=== PATIENT | female | born 1955 | race Caucasian/White ===

== ENCOUNTER 2017-02-28 17:17 | Emergency (ER) | payer SELFPAY ==
--- NOTE | 2017-02-28 17:39 | RADIOLOGY REPORT (SQ) ---
EXAM DESCRIPTION: CT HEAD WITHOUT COMPLETED DATE/TIME: 02/28/2017 5:29 pm REASON FOR STUDY: bed 10 stroke alert COMPARISON: None. TECHNIQUE: Axial images acquired through the brain without intravenous contrast. Images reviewed wi th bone, brain and subdural windows. Images stored on PACS. All CT scanners at this facility use dose modulation, iterative reconstruction, and/or weight based d osing when appropriate to reduce radiation dose to as low as reasonably achievable (ALARA). [facility]: Dose Right [facility]: CareDose [facility]: Dose Right [facility]: Teradose 4D [facility]: [employer] RADIATION DOSE: mGy. LIMITATIONS: None. FINDINGS: VENTRICLES: Prominent. CEREBRUM: There old infarcts in the right posterior frontal lobe an anterior parietal region. There is an acute left hemorrhagic infarct in the left basal ganglia extending superiorly. The hemorrhage measures 1.2 cm in diameter. There is surrounding vasogenic edema. No midline shift. There is vickey le mass effect due to the generalized atrophy. There is decreased attenuation throughout the periven tricular white matter consistent with small vessel disease. CEREBELLUM: No masses. No hemorrhage. No alteration of density. No evidence for acute infarction. EXTRAAXIAL SPACES: Age-related involutional change. No fluid collections. No masses. ORBITS AND GLOBE: No intra- or extraconal masses. Normal contour of globe without masses. CALVARIUM: No fracture. PARANASAL SINUSES: No fluid or mucosal thickening. SOFT TISSUES: No mass or hematoma. OTHER: No other significant finding. IMPRESSION: 1. Acute hemorrhagic infarct in the left basal ganglia. 2. Old right MCA infarct. Generalize atrophy and small-vessel ischemic changes. COMMENT: Pertinent findings on the imaging study reported as a CRITICAL RESULT to Dr. Lucero at17: 30 on 02/28/2017. Category of Critical Result: Acute hemorrhagic infarct. TECHNICAL DOCUMENTATION: JOB ID: [id number] Quality ID # [id number]: Final reports with documentation of one or more dose reduction techniques (e.g., Au tomated exposure control, adjustment of the mA and/or kV according to patient size, use of iterative reconstruction technique) 2010 [email or web address]- All Rights Reserved
[2017-02-28] MEDS ORDERED: NICARDIPINE HCL RTU, ISO-OS 20 MG/200 ML RTUINJ IV PRN (17:44)
[2017-02-28 17:45] LABS: ABSOLUTE BASOPHILS # (AUTO) 0.1 10^3/uL (0.0-0.2); ABSOLUTE EOSINOPHILS # (AUTO) 0.2 10^3/uL (0.0-0.6); ABSOLUTE LYMPHOCYTES (AUTO) 2.7 10^3/uL (0.5-4.7); ABSOLUTE MONOCYTES (AUTO) 0.6 10^3/uL (0.1-1.4); ABSOLUTE NEUT (AUTO) 3.3 10^3/uL (1.7-8.2); BASOPHILS % (AUTO) 0.8 % (0-2); EOSINOPHILS % (AUTO) 2.6 % (0-6); HEMATOCRIT 39.2 % (36.0-47.0); HEMOGLOBIN 14.3 g/dL (12.0-15.5); HGB HCT DIFFERENCE 3.7; LYMPHOCYTES % (AUTO) 40.2 % (13-45); MEAN CORPUSCULAR HEMOGLOBIN 33.2 pg (27.0-33.4); MEAN CORPUSCULAR HGB CONC 36.5 g/dL (32.0-36.0); MEAN CORPUSCULAR VOLUME 91 fl (80-97); MONOCYTES % (AUTO) 8.5 % (3-13); RED BLOOD COUNT 4.31 10^6/uL (3.72-5.28); RED CELL DISTRIBUTION WIDTH 14.2 % (11.5-14.0); SEGMENTED NEUTROPHILS % (AUTO) 47.9 % (42-78); WHITE BLOOD COUNT 6.8 10^3/uL (4.0-10.5)
[2017-02-28 17:49] LABS: PARTIAL THROMBOPLASTIN TIME 28.6 SEC (23.5-35.8); PROTHROMBIN TIME 12.2 SEC (11.4-15.4)
--- NOTE | 2017-02-28 17:52 | RADIOLOGY REPORT (SQ) ---
EXAM DESCRIPTION: CHEST SINGLE VIEW COMPLETED DATE/TIME: 02/28/2017 5:40 pm REASON FOR STUDY: bed 10 stroke alert COMPARISON: None. EXAM PARAMETERS: NUMBER OF VIEWS: One view. TECHNIQUE: Single frontal radiographic view of the chest acquired. RADIATION DOSE: NA LIMITATIONS: None. FINDINGS: LUNGS AND PLEURA: No opacities, masses or pneumothorax. No pleural effusion. MEDIASTINUM AND HILAR STRUCTURES: No masses. Contour normal. HEART AND VASCULAR STRUCTURES: Heart normal in size. Normal vasculature. BONES: No acute findings. HARDWARE: None in the chest. OTHER: No other significant finding. IMPRESSION: NO ACUTE RADIOGRAPHIC FINDING IN THE CHEST. TECHNICAL DOCUMENTATION: JOB ID: [id number]
--- NOTE | 2017-02-28 17:53 | ER Document Report ---
ED Neuro Symptoms/Deficit - General Chief Complaint: S/S of Possible Stroke Stated Complaint: RIGHT ARM NUMBNESS Time Seen by Provider: 02/28/17 17:36 Notes: 61-year-old female with history of seizures and prior CVA last being in December treated at [facility] presents with new onset speech abnormality and right- sided weakness/numbness of about 1 hour duration prior to arrival. She denies any swallowing or breathing difficulty. She is supposed to be on aspirin but not taking any anticoagulants. As well she is off all of her medications including her lisinopril and Keppra. There has been no seizure associated with this. Denies visual change. No prior intracranial hemorrhage. TRAVEL OUTSIDE OF THE [place] IN LAST 30 DAYS: No - Related Data Allergies/Adverse Reactions: codeine Allergy (Verified 02/28/17 17:25) Past Medical History - Social History Smoking Status: Current Every Day Smoker Family History: Reviewed & Not Pertinent - Past Medical History Cardiac Medical History: Reports: Hx Hypertension Neurological Medical History: Reports: Hx Cerebrovascular Accident, Hx Seizures Renal/ Medical History: Denies: Hx Peritoneal Dialysis Review of Systems - Review of Systems -: Yes All other systems reviewed and negative Physical Exam - Vital signs Vitals: Temp Pulse Resp BP Pulse Ox 98.6 F 69 14 198/115 H 95 02/28/17 17:23 02/28/17 17:23 02/28/17 17:23 02/28/17 17:23 02/28/17 17:23 Interpretation: Hypertensive Notes: Blood pressure 208/119 - Notes Notes: GENERAL: VS as per nursing doc. Well-appearing, well-nourished and in no acute distress. HEAD: Atraumatic, normocephalic. EYES: Pupils equal round and reactive to light, extraocular movements intact, sclera anicteric, no conjunctival injection or discharge. ENT: Nares patent, oropharynx clear without exudates. Moist mucous membranes. Patent airway NECK: Normal range of motion, supple, no carotid bruits. LUNGS: Breath sounds clear to auscultation bilaterally and equal but very coarse. No wheezes rales or rhonchi. HEART: Normal S1S2. Regular rate and rhythm without murmurs. Equal peripheral pulses. ABDOMEN: Soft, non-tender. EXTREMITIES: Normal range of motion. No calf tenderness. Negative Homans. No edema. NEUROLOGICAL: GCS 15, Cranial nerves II-XII intact except for some mild right facial droop. Normal visual toro. Normal speech without aphasia. No pronator drift. 3/5 RUE strength, 4/5 RLE strength, 5/5 LUE strength, 5/5 LLE strength. No cerebellar abnormalities including normal finger-nose testing. Negative Babinski, right pronator drift noted. Mild dysarthria noted. No clear aphasia otherwise. PSYCH: Normal mood, normal affect. SKIN: Warm, Dry, no cyanosis, Cap refill < 2 sec. Course - Re-evaluation Re-evalutation: 02/28/17 17:47 Spoke with [facility] and they will contact us back. This was patient's first choice and she was there with a CVA in December. 02/28/17 18:[address] Sales who recommended patient transfer as we have no neurologist or neurosurgeon infection control nurse. Discussed with Dr. Conley at [facility] who accepts the patient to [facility] for further evaluation and treatment. Patient's blood pressure has improved. It has decreased to a systolic of 160. We will continue to titrate the Cardene to get the systolic less than 140. 02/28/17 19:55 Blood pressure remaining stable currently 123/58. No worsening of symptoms, actually overall thinks that her arm is slightly stronger. - Vital Signs Vital signs: Temp Pulse Resp BP Pulse Ox 98.6 F 69 14 198/115 H 95 02/28/17 17:23 02/28/17 17:23 02/28/17 17:23 02/28/17 17:23 02/28/17 17:23 - Laboratory Result Diagrams: 02/28/17 17:35 02/28/17 17:35 - Diagnostic Test Radiology reviewed: Image reviewed, Reports reviewed - Left basal ganglia hemorrhage. Some vasogenic edema. - EKG Interpretation by Ok Rate: Normal - Normal sinus rhythm, rate 63 with left axis deviation and left ventricular hypertrophy. Nonspecific T-wave abnormalities are noted more in the inferior and somewhat anteriorly Critical Care Note - Critical Care Note Total time excluding time spent on procedures (mins): 35 Discharge - Discharge Clinical Impression: Hemorrhagic cerebrovascular accident (CVA) Condition: Good Disposition: [facility]
--- NOTE | 2017-02-28 17:58 | ER Document Report ---
ED NIH Stroke Scale - NIH Stroke Scale *: 1. NIH scale should be completed with appropriate accompanying assessment tools. *: 2. The NIH should reflect what the patient is capable of doing and should not be coached by the clinician. 1a. Level of Consciousness: 0=Alert;keenly responsive -: 1=Drowsy -: 2=Obtunded -: 3=Coma/unresponsive or reflex to noxious stimuli. 1a. Responses: 0 1b. Orientation Questions: a. What month is it? -: b. How old are you? -: 0=Answers both questions correctly. -: 1=Answers one question correctly or patient is intubated or has orotracheal trauma. -: 2=Answers neither question correctly. 1b. Responses: 0 1c. Response to commands: a. Open and close eyes? -: b. Credit Verifier and release hand? -: Credit is given despite weakness. Demonstration of task is permitted. Substitute command if hands cannot be used. -: 0=Performs both tasks correctly -: 1=Performs one task correctly -: 2=Performs neither task correctly 1c. Responses: 0 2. Gaze: Establish eye contact and instruct patient to "Follow my finger" -: 0=Normal -: 1=Partial gaze palsy. Gaze is abnormal in one or both eyes, but where forced deviation or total gaze paresis is not present. -: 2=Forced deviation or total gaze paresis. 2. Responses: 0 3. Visual Wilson: Sees fingers in all four quadrants. -: 0=No visual loss. -: 1=Partial hemianopsia. -: 2=Complete hemianopsia. -: 3=Bilateral hemianopsia (including Cortical blindness) 3. Responses: 0 4. Facial Movement: Instruct patient to: -: a. Show me your teeth -: b. Raise your eyebrows -: c. Close your eyes -: d. Smile -: 0=Normal symmetrical movement -: 1=Minor paralysis (flattened nasolabial fold, asymmetry on smiling). -: 2=Partial paralysis (total or near total paralysis of lower face). -: 3=Complete paralysis of upper and lower face 4. Responses: 1 5. Motor functions (left arm): Alternate sides and extend each arm with palms down (90 degrees if sitting or 45 degrees for supine). -: 0=No drift;limb holds for full 10 seconds. -: 1=Drift; limb holds but drifts down before full 10 seconds, but does not hit bed. -: 2=Some effort against gravity; limb cannot get to or maintain position. -: 3=No effort against gravity; limb falls. -: 4=No movement. -: UN=Amputation, joint fusion, explain in comments. 5. Responses (left arm): 0 5. Motor Functions (right arm): Alternate sides and extend each arm with palms down (90 degrees if sitting or 45 degrees for supine). -: 0=No drift;limb holds for full 10 seconds. -: 1=Drift; limb holds but drifts down before full 10 seconds, but does not hit bed. -: 2=Some effort against gravity; limb cannot get to or maintain position. -: 3=No effort against gravity; limb falls. -: 4=No movement. -: UN=Amputation, joint fusion, explain in comments. 5. Responses (right arm): 1 6. Motor Functions (left leg): With patient lying supine, alternate sides and extend each leg (30 degrees always while supine). -: 0=No drift, leg holds position for full 5 seconds -: 1=Drift; leg falls before full 5 seconds but does not hit bed. -: 2=Some effort against gravity, leg falls to bed but some effort against gravity. -: 3=No effort against gravity, leg falls to bed immediately. -: 4=No movement. -: UN=Amputation, joint fusion; explain in comments. 6. Responses (left leg): 0 6. Motor Functions (right leg): With patient lying supine, alternate sides and extend each leg (30 degrees always while supine). -: 0=No drift, leg holds position for full 5 seconds -: 1=Drift; leg falls before full 5 seconds but does not hit bed. -: 2=Some effort against gravity, leg falls to bed but some effort against gravity. -: 3=No effort against gravity, leg falls to bed immediately. -: 4=No movement. -: UN=Amputation, joint fusion; explain in comments. 6. Responses (right leg): 1 7. Limb Ataxia: With eyes open instruct patient to: -: a. "Touch your finger to your nose". -: b. "Touch your heel to your duff" -: 0=Absent -: 1=Present in one limb. -: 2=Present in two limbs. -: UN=Amputation or joint fusion; explain in comments. 7. Responses: 0 8. Sensory: Test sensation using pinprick or noxious stimuli. Test as many body parts as possible. -: 0=Normal;no sensory loss -: 1=Mile to moderate sensory loss (patient feels pin prick but is less sharp on affected side). -: 2=Severe or total sensory loss. 8. Responses: 0 9. Best Language: Instruct patient to: -: a. "Describe what you see in this picture." -: b. "Name the items in this picture." -: c. "Read these sentences." -: 0=No aphasia, normal -: 1=Mild to moderate aphasia. -: 2=Severe aphasia -: 3=Mute, global aphasia, no usable speech or auditory comprehension. 9. Responses: 0 10. Articulation, Dysarthia: Instruct patient to: -: "Read these words" or "Repeat these words" -: 0=Normal -: 1=Mild to moderate; patient may slur some words but can be understood without difficulty. -: 2=Severe; patients speech so slurred as to be unintelligible in the absence of dysphasia. -: UN=Intubated or other physical barrier, explain in comments. 10. Responses: 1 11. Extinction or inattention: 0=No abnormality -: 1= Visual, tactile, auditory, spatial, or personal inattention or extinction to bilateral simulation in one or the sensory modalities. -: 2=Profound eli-inattention or eli-inattention to more than one modality; does not recognize own hand. 11. Responses: 0 Total Score: 4
[2017-02-28 18:03] LABS: ALANINE AMINOTRANSFERASE 32 U/L (9-52); ALBUMIN 4.4 g/dL (3.5-5.0); ALKALINE PHOSPHATASE 103 U/L (38-126); ANION GAP 12 (5-19); ASPARTATE AMINO TRANSFERASE 29 U/L (14-36); BILIRUBIN,DIRECT 0.4 mg/dL (0.0-0.4); BILIRUBIN,TOTAL 1.1 mg/dL (0.2-1.3); BLOOD UREA NITROGEN 16 mg/dL (7-20); CALCIUM 9.6 mg/dL (8.4-10.2); CARBON DIOXIDE 33 mmol/L (22-30); CHLORIDE 99 mmol/L (98-107); CREATINE KINASE 167 U/L (30-135); CREATININE RESULT 1.06 mg/dL (0.52-1.25); GLUCOSE 102 mg/dL (75-110); SODIUM 144.2 mmol/L (137-145); TOTAL PROTEIN 7.8 g/dL (6.3-8.2)
[2017-02-28 18:05] LABS: POTASSIUM 2.8 mmol/L (3.6-5.0)
[2017-02-28] MEDS ORDERED: POTASSIUM CHLORIDE 10 MEQ TABLET.SA PO ONE (18:06)
[2017-02-28 18:16] LABS: CREATINE KINASE MB 0.66 ng/mL (<4.55)
[2017-02-28 18:17] LABS: TROPONIN I < 0.012 ng/mL
[2017-02-28 20:56] VITALS: BP 134/92
--- NOTE | 2017-02-28 22:48 | EKG REPORT ---
SEVERITY:- ABNORMAL ECG - SINUS RHYTHM LEFT AXIS DEVIATION LEFT VENTRICULAR HYPERTROPHY BORDERLINE T ABNORMALITIES, INFERIOR LEADS BORDERLINE PROLONGED QT INTERVAL : Confirmed by: Benny White 28-Feb-2017 22:47:41
== END 2017-02-28 21:05 | disposition short-term general hospital (02) ==
LOC: ER 17:17
DX: I62.9 Nontraumatic intracranial hemorrhage, unspecified (principal); R20.0 Anesthesia of skin; R53.1 Weakness; I10 Essential (primary) hypertension; F17.200 Nicotine dependence, unspecified, uncomplicated
CPT/HCPCS: 93005; 99291; 96365; 96366; 36415; 82553; 82962; 82550; 83735; 85025; 85610; 85730; 80053; 84484; 71010; 70450; 93010; J3490

== ENCOUNTER 2018-06-08 11:31 | Emergency (ER) | payer SELFPAY ==
[2018-06-08] MEDS ORDERED: CLONIDINE HCL 0.2 MG TABLET PO ONE (11:40)
--- NOTE | 2018-06-08 11:41 | ER Document Report ---
ED Medical Screen (RME) - General Chief Complaint: High Blood Pressure Stated Complaint: BLOOD PRESSURE ISSUES Time Seen by Provider: 06/08/18 11:39 Mode of Arrival: Ambulatory Information source: Patient TRAVEL OUTSIDE OF THE [place] IN LAST 30 DAYS: No - HPI Patient complains to provider of: elevated BP Onset: Other - pt. states she has been out of her BP meds for the past several weeks. BP has been running high - Related Data Allergies/Adverse Reactions: codeine Allergy (Verified 06/08/18 11:32) Past Medical History - Past Medical History Cardiac Medical History: Reports: Hx Hypertension Neurological Medical History: Reports: Hx Cerebrovascular Accident, Hx Seizures Renal/ Medical History: Denies: Hx Peritoneal Dialysis Physical Exam - Vital signs Vitals: Temp Pulse Resp BP Pulse Ox 97.7 F 74 18 174/106 H 96 06/08/18 11:33 06/08/18 11:33 06/08/18 11:33 06/08/18 11:33 06/08/18 11:33 Course - Vital Signs Vital signs: Temp Pulse Resp BP Pulse Ox 97.7 F 74 18 174/106 H 96 06/08/18 11:33 06/08/18 11:33 06/08/18 11:33 06/08/18 11:33 06/08/18 11:33 Doctor's Discharge - Discharge Referrals: EMILIA LAWS MD [Primary Care Provider] - Follow up as needed
[2018-06-08 12:08] LABS: ABSOLUTE LYMPHOCYTES (AUTO) 0.8 10^3/uL (0.5-4.7); ABSOLUTE MONOCYTES (AUTO) 0.3 10^3/uL (0.1-1.4); ABSOLUTE NEUT (AUTO) 4.9 10^3/uL (1.7-8.2); BASOPHILS % (AUTO) 0.4 % (0-2); HEMATOCRIT 45.3 % (36.0-47.0); HEMOGLOBIN 15.7 g/dL (12.0-15.5); LYMPHOCYTES % (AUTO) 13.8 % (13-45); MEAN CORPUSCULAR HGB CONC 34.7 g/dL (32.0-36.0); MEAN CORPUSCULAR VOLUME 92 fl (80-97); PLATELET COUNT 314 10^3/uL (150-450); RED BLOOD COUNT 4.91 10^6/uL (3.72-5.28); RED CELL DISTRIBUTION WIDTH 12.9 % (11.5-14.0); SEGMENTED NEUTROPHILS % (AUTO) 80.8 % (42-78); TOTAL CELLS COUNTED % (AUTO) 100 %; WHITE BLOOD COUNT 6.1 10^3/uL (4.0-10.5)
[2018-06-08 12:16] LABS: ALANINE AMINOTRANSFERASE 21 U/L (9-52); ALBUMIN 4.7 g/dL (3.5-5.0); ALKALINE PHOSPHATASE 81 U/L (38-126); ANION GAP 11 (5-19); ASPARTATE AMINO TRANSFERASE 31 U/L (14-36); BILIRUBIN,DIRECT 0.2 mg/dL (0.0-0.4); BILIRUBIN,TOTAL 1.4 mg/dL (0.2-1.3); BLOOD UREA NITROGEN 11 mg/dL (7-20); CARBON DIOXIDE 29 mmol/L (22-30); CHLORIDE 101 mmol/L (98-107); GLUCOSE 154 mg/dL (75-110); POTASSIUM 3.1 mmol/L (3.6-5.0); SODIUM 140.9 mmol/L (137-145); TOTAL PROTEIN 8.2 g/dL (6.3-8.2)
--- NOTE | 2018-06-08 13:11 | ER Document Report ---
ED Blood Pressure Problem - General Chief Complaint: High Blood Pressure Stated Complaint: BLOOD PRESSURE ISSUES Time Seen by Provider: 06/08/18 11:39 Mode of Arrival: Ambulatory Notes: Patient is a 62-year-old female with past medical history of hypertension who presents with chief complaint of elevated blood pressure. Patient states that she was at a physical exam for her disability claim when they found her blood pressure to be 170/100. Patient reports that she has not taken her blood pressure medications in 2 months. She is also supposed be taking Keppra for seizure disorder and she has also not had that in 2 months. Patient reports she has no primary care provider and no insurance and that is why she has not gotten refills on her medications. Patient has no acute complaints today, denies any headache, dizziness or any other symptom. TRAVEL OUTSIDE OF THE [place] IN LAST 30 DAYS: No - Related Data Allergies/Adverse Reactions: codeine Allergy (Verified 06/08/18 11:32) Past Medical History - General Information source: Patient - Social History Smoking Status: Never Smoker Chew tobacco use (# tins/day): No Drug Abuse: None Family History: Reviewed & Not Pertinent Patient has suicidal ideation: No Patient has homicidal ideation: No - Past Medical History Cardiac Medical History: Reports: Hx Hypertension Neurological Medical History: Reports: Hx Cerebrovascular Accident, Hx Seizures Renal/ Medical History: Denies: Hx Peritoneal Dialysis Review of Systems - Review of Systems Constitutional: No symptoms reported EENT: No symptoms reported Cardiovascular: No symptoms reported Respiratory: No symptoms reported Gastrointestinal: No symptoms reported Genitourinary: No symptoms reported Female Genitourinary: No symptoms reported Musculoskeletal: No symptoms reported Skin: No symptoms reported Hematologic/Lymphatic: No symptoms reported Neurological/Psychological: No symptoms reported Physical Exam - Vital signs Vitals: Temp Pulse Resp BP Pulse Ox 97.7 F 74 18 174/106 H 96 06/08/18 11:33 06/08/18 11:33 06/08/18 11:33 06/08/18 11:33 06/08/18 11:33 - Notes Notes: PHYSICAL EXAMINATION: GENERAL: Well-appearing, well-nourished and in no acute distress. HEAD: Atraumatic, normocephalic. EYES: Pupils equal round and reactive to light, extraocular movements intact, conjunctiva are normal. ENT: Nares patent, oropharynx clear without exudates. Moist mucous membranes. NECK: Normal range of motion, supple without lymphadenopathy LUNGS: Breath sounds clear to auscultation bilaterally and equal. No wheezes rales or rhonchi. HEART: Regular rate and rhythm without murmurs ABDOMEN: Soft, nontender, nondistended abdomen. No guarding, no rebound. No masses appreciated. Female : No CVA tenderness. Musculoskeletal: Normal range of motion, no pitting or edema. No cyanosis. NEUROLOGICAL: Cranial nerves grossly intact. Normal speech, normal gait. Normal sensory, motor exams PSYCH: Normal mood, normal affect. SKIN: Warm, Dry, normal turgor, no rashes or lesions noted. Course - Re-evaluation Re-evalutation: Patient was initially seen by provider in triage who ordered Catapres 0.2 mg. Patient's blood pressure has improved to 150 systolic. Patient continues to be asymptomatic and without any acute complaints. CBC is unremarkable. CMP with mild hypokalemia. Will order p.o. potassium replacement. Patient reports she has a history of hypokalemia and takes supplements at home. I will refill her blood pressure medications as well as her Keppra. Discussed discussed the importance of adherence to her medication regimen. Patient and family member at bedside verbalized understanding of same. - Vital Signs Vital signs: Temp Pulse Resp BP Pulse Ox 97.8 F 62 18 154/95 H 96 06/08/18 13:20 06/08/18 13:20 06/08/18 11:33 06/08/18 13:20 06/08/18 13:20 - Laboratory Result Diagrams: 06/08/18 11:48 06/08/18 11:48 Laboratory results interpreted by me: 06/08/18 06/08/18 11:48 11:48 Hgb 15.7 H Seg Neutrophils % 80.8 H Potassium 3.1 L Glucose 154 H Total Bilirubin 1.4 H Discharge - Discharge Clinical Impression: Medication refill, Hypokalemia Hypertension Qualifiers: Hypertension type: unspecified Qualified Code(s): I10 - Essential (primary) h ypertension Condition: Stable Disposition: HOME, SELF-CARE Additional Instructions: You were seen today for your elevated blood pressure. It appears that you have been out of your medications for both your blood pressure and your seizures for at least 2 months. All medications have been refilled. Your potassium was a l ittle on the low side today. You are given a dose of oral potassium. Please take the potassium that you have at home as prescribed. Please follow-up with primary care. I have listed a few names for you to follow-up with. Prescriptions: RX: Amlodipine Besylate [Norvasc 10 mg Tablet] 10 mg PO DAILY #30 tablet Levetiracetam [Keppra 500 mg Tablet] 500 mg PO Q12 #60 tablet RX: Lisinopril [Prinivil] 10 mg PO DAILY #30 tablet RX: Potassium Chloride 20 meq PO DAILY #30 [email or web address] Referrals: EMILIA LAWS MD [NO LOCAL MD] - Follow up as needed DIAN BECERRA MD [ACTIVE STAFF] - Follow up as needed
[2018-06-08] MEDS ORDERED: POTASSIUM CHLORIDE 10 MEQ CAPSULE.ER PO ONE (13:13)
[2018-06-08 13:28] VITALS: BP 157/82
== END 2018-06-08 13:39 | disposition home or self-care (01) ==
LOC: ER 11:31
DX: I10 Essential (primary) hypertension (principal); T46.1X6A Underdosing of calcium-channel blockers, initial encounter; T46.4X6A Underdosing of angiotensin-converting-enzyme inhibitors, initial encounter; G40.909 Epilepsy, unspecified, not intractable, without status epilepticus; T42.6X6A Underdosing of other antiepileptic and sedative-hypnotic drugs, initial encounter; Z91.120 Patient's intentional underdosing of medication regimen due to financial hardship; Z91.14 Patient's other noncompliance with medication regimen; E87.6 Hypokalemia; Z79.899 Other long term (current) drug therapy; Z88.5 Allergy status to narcotic agent
CPT/HCPCS: 36415; 80053; 85025; 99283

== ENCOUNTER 2018-11-03 10:26 | Inpatient (IN) | payer MEDICAID ==
[2018-11-03] MEDS ORDERED: ONDANSETRON HCL INJ/PF 4 MG/2 ML SDV ONE (10:33)
[2018-11-03] MEDS ORDERED: ONDANSETRON HCL INJ/PF 4 MG/2 ML SDV IV ONE (10:38)
--- NOTE | 2018-11-03 10:48 | ER Document Report ---
ED Seizure - General Chief Complaint: Seizure Stated Complaint: SEIZURE Time Seen by Provider: 11/03/18 10:29 Notes: Patient had a seizure this morning while cooking and fixing coffee. She reportedly fell to the floor in her kitchen. EMS was called to the scene. Patient was no longer seizing but unresponsive. Family relates that the patient had a brain aneurysm in 2001. She had bleeding in her brain, but did not have surgery. Family says she did not have a stroke as a result of that brain bleeding, but has had 3 strokes since that episode. She has had seizures since she has these strokes.. She was on seizure medications, but is not currently taking any medication. Her last seizure was reported in 2016. Patient is currently vomiting and EMS reports there is some vomitus in various locations in the household. Only other history we have is the patient is hypertensive. Family tells me that she has not been on any medication for high blood pressure for 4 or 5 months. EMS got blood pressure of 185/116, but later 166/96. No further history available at this time, but will talk with family momentarily. - Related Data Allergies/Adverse Reactions: codeine Allergy (Verified 06/08/18 11:32) Past Medical History - Social History Smoking Status: Unknown if Ever Smoked Family History: Reviewed & Not Pertinent - Past Medical History Cardiac Medical History: Reports: Hx Hypertension Neurological Medical History: Reports: Hx Cerebrovascular Accident, Hx Seizures, Other - Brain aneurysm Endocrine Medical History: Denies: Hx Diabetes Mellitus Type 1, Hx Diabetes Mellitus Type 2 Review of Systems - Review of Systems -: Yes ROS unobtainable due to patient's medical condition - Patient just vomited. Is not speaking. Not following commands. Physical Exam - Vital signs Vitals: Resp Pulse Ox 17 88 L 11/03/18 10:37 11/03/18 10:37 PHYSICAL EXAMINATION: GENERAL: Patient is actively vomiting at this time. HEAD: Atraumatic, normocephalic. EYES: Pupils equal round and reactive to light, extraocular movements intact. ENT: oropharynx clear without exudates. Moist mucous membranes. NECK: Normal range of motion, supple. LUNGS: Breath sounds clear and equal bilaterally. HEART: Regular rate and rhythm without murmurs. ABDOMEN: Soft, nontender. No guarding or rebound. No masses. BACK: No tenderness throughout entire back. EXTREMITIES: Normal range of motion without pain. NEUROLOGICAL: Patient is not speaking and does not answer questions nor follow commands. She was actively vomiting, but has now stopped, but sits on the stretcher with her hands folded and not responding. Is moving all 4 extremities and does not appear to have any lateralizing signs. Patient is awake, but not talking or responding or following commands. Psychiatric: Unable to assess. SKIN: Warm, dry, no rashes. Course - Re-evaluation Re-evalutation: 11/03/18 12:02 Patient is sleeping, but awakens easily to voice. When asked if she thinks she could swallow some pills, she said no. Moving all [address] scan of the brain shows old surgery on the right side, but no acute processes and no stroke. 11/03/18 14:03 Patient seems to be awakening from her postictal state. She is asking where she is and what happened. Family says she is recognizes all of them. Patient's bl ood pressure has gone up some and she is now running a systolic around 200, 10. I am giving her 0.1 of clonidine p.o. Has been given potassium for her hypokalemia. Has been given Keppra for seizures. Spoke with hospitalist and patient will be admitted to their service, to telemetry. - Vital Signs Vital signs: Temp Pulse Resp BP Pulse Ox 97.9 F 75 16 150/84 H 94 11/04/18 07:38 11/04/18 07:38 11/04/18 07:38 11/04/18 07:38 11/04/18 07:38 - Laboratory Result Diagrams: 11/04/18 04:20 11/04/18 04:20 Laboratory results interpreted by me: 11/03/18 10:35 Potassium 3.0 L* Carbon Dioxide 34 H Est GFR ( Amer) 58 L Est GFR (Non-Af Amer) 48 L Total Bilirubin 1.4 H - Diagnostic Test Radiology reviewed: Image reviewed, Reports reviewed - CT scan of the brain shows changes of right craniotomy in the right parietal lobe. No evidence of stroke. Radiology results interpreted by me: 11/03/18 11:55 Chest x-ray shows cardiomegaly but no evidence of heart failure. - EKG Interpretation by Wy EKG shows normal: Sinus rhythm Voltage: Consistant with LVH Heart block present: 1st Degree Additional EKG results interpreted by me: 11/03/18 11:56 EKG shows no acute changes. Critical Care Note - Critical Care Note Total time excluding time spent on procedures (mins): 45 Discharge - Discharge Clinical Impression: Seizure, Hypertension, Hypokalemia Condition: Stable Disposition: ADMITTED INPATIENT Admitting Provider: Juventino (Hospitalist) Unit Admitted: [facility]
[2018-11-03 10:56] LABS: ABSOLUTE EOSINOPHILS # (AUTO) 0.2 10^3/uL (0.0-0.6); ABSOLUTE LYMPHOCYTES (AUTO) 2.9 10^3/uL (0.5-4.7); ABSOLUTE MONOCYTES (AUTO) 0.6 10^3/uL (0.1-1.4); ABSOLUTE NEUT (AUTO) 3.9 10^3/uL (1.7-8.2); BASOPHILS % (AUTO) 0.6 % (0-2); EOSINOPHILS % (AUTO) 2.1 % (0-6); HEMATOCRIT 42.8 % (36.0-47.0); HEMOGLOBIN 14.8 g/dL (12.0-15.5); LYMPHOCYTES % (AUTO) 37.8 % (13-45); MEAN CORPUSCULAR HEMOGLOBIN 31.2 pg (27.0-33.4); MEAN CORPUSCULAR HGB CONC 34.5 g/dL (32.0-36.0); MEAN CORPUSCULAR VOLUME 91 fl (80-97); MONOCYTES % (AUTO) 8.4 % (3-13); PLATELET COUNT 275 10^3/uL (150-450); RED BLOOD COUNT 4.73 10^6/uL (3.72-5.28); RED CELL DISTRIBUTION WIDTH 13.9 % (11.5-14.0); SEGMENTED NEUTROPHILS % (AUTO) 51.1 % (42-78); TOTAL CELLS COUNTED % (AUTO) 100 %; WHITE BLOOD COUNT 7.7 10^3/uL (4.0-10.5)
[2018-11-03 11:02] LABS: INTERNATIONAL RATION (INR) 0.91; PROTHROMBIN TIME 12.7 SEC (11.4-15.4)
[2018-11-03] MEDS ORDERED: LEVETIRACETAM 1000 MG/NACL-ISO 1,000 MG/100 ML RTUPB IV ONE (11:09)
[2018-11-03 11:10] LABS: ALANINE AMINOTRANSFERASE 26 U/L (9-52); ALBUMIN 4.2 g/dL (3.5-5.0); ALKALINE PHOSPHATASE 83 U/L (38-126); ANION GAP 10 (5-19); ASPARTATE AMINO TRANSFERASE 26 U/L (14-36); BILIRUBIN,DIRECT 0.3 mg/dL (0.0-0.4); BILIRUBIN,TOTAL 1.4 mg/dL (0.2-1.3); BLOOD UREA NITROGEN 11 mg/dL (7-20); CALCIUM 9.6 mg/dL (8.4-10.2); CARBON DIOXIDE 34 mmol/L (22-30); CHLORIDE 98 mmol/L (98-107); GLUCOSE 105 mg/dL (75-110); SODIUM 141.9 mmol/L (137-145); TOTAL PROTEIN 7.9 g/dL (6.3-8.2)
[2018-11-03 11:22] LABS: CREATINE KINASE MB 0.55 ng/mL (<4.55)
[2018-11-03 11:25] LABS: TROPONIN I < 0.012 ng/mL
--- NOTE | 2018-11-03 11:38 | RADIOLOGY REPORT (SQ) ---
EXAM DESCRIPTION: CHEST SINGLE VIEW COMPLETED DATE/TIME: 11/03/2018 11:28 am REASON FOR STUDY: Seizure COMPARISON: None. NUMBER OF VIEWS: One view. TECHNIQUE: Single frontal radiographic view of the chest acquired. LIMITATIONS: None. FINDINGS: LUNGS AND PLEURA: No opacities, masses or pneumothorax. No pleural effusion. MEDIASTINUM AND HILAR STRUCTURES: No masses. Contour normal. HEART AND VASCULAR STRUCTURES: Heart enlarged without failure. Normal vasculature. BONES: No acute findings. HARDWARE: None in the chest. OTHER: No other significant finding. IMPRESSION: HEART ENLARGED WITHOUT FAILURE. NO OTHER SIGNIFICANT RADIOGRAPHIC FINDING IN THE CHEST. TECHNICAL DOCUMENTATION: JOB ID: [id number] [employer]- All Rights Reserved Reading location - IP/workstation name: [email or web address]
--- NOTE | 2018-11-03 11:41 | RADIOLOGY REPORT (SQ) ---
EXAM DESCRIPTION: CT HEAD WITHOUT COMPLETED DATE/TIME: 11/03/2018 11:24 am REASON FOR STUDY: Seizure. Hx seizures, brain aneurysm 2002, stroke COMPARISON: 02/28/2017. TECHNIQUE: Axial images acquired through the brain without intravenous contrast. Images reviewed wi th bone, brain and subdural windows. Additional sagittal and coronal reconstructions were generated. Images stored on PACS. All CT scanners at this facility use dose modulation, iterative reconstruction, and/or weight based d osing when appropriate to reduce radiation dose to as low as reasonably achievable (ALARA). [facility]: Dose Right [facility]: CareDose [facility]: Dose Right [facility]: Teradose 4D [facility]: [employer] RADIATION DOSE: CT Rad equipment meets quality standard of care and radiation dose reduction techniq ues were employed. CTDIvol: 53.2 mGy. DLP: 1017 mGy-cm.mGy. LIMITATIONS: None. FINDINGS: VENTRICLES: Prominent. CEREBRUM: No masses. No hemorrhage. No midline shift. A few calcifications adjacent to the left oc cipital horn. Areas of low density in the white matter most likely due to chronic micro-vascular isc hemic change. Surgical changes on the right side with encephalomalacia in the right parietal lobe. No evidence for acute infarction. CEREBELLUM: No masses. No hemorrhage. No alteration of density. No evidence for acute infarction. EXTRAAXIAL SPACES: Age-related involutional change. No fluid collections. No masses. ORBITS AND GLOBE: No intra- or extraconal masses. Normal contour of globe without masses. CALVARIUM: Previous right craniotomy. No fracture. PARANASAL SINUSES: No fluid or mucosal thickening. SOFT TISSUES: No mass or hematoma. OTHER: No other significant finding. IMPRESSION: CHRONIC CHANGES OF ATROPHY AND MICROVASCULAR ISCHEMIA. SURGICAL CHANGES OF RIGHT CRANIO MU WITH CHRONIC ENCEPHALOMALACIA IN THE RIGHT PARIETAL LOBE. NO ACUTE PROCESS. EVIDENCE OF ACUTE STROKE: NO. TECHNICAL DOCUMENTATION: JOB ID: [id number] Quality ID # [id number]: Final reports with documentation of one or more dose reduction techniques (e.g., Au tomated exposure control, adjustment of the mA and/or kV according to patient size, use of iterative reconstruction technique) 2010 [employer]- All Rights Reserved Reading location - IP/workstation name: [email or web address]
[2018-11-03] MEDS ORDERED: POTASSIUM CHLORIDE 10 MEQ CAPSULE.ER PO ONE (12:01)
[2018-11-03] MEDS ORDERED: CLONIDINE HCL 0.1 MG TABLET PO ONE (13:55)
[2018-11-03] MEDS ORDERED: GLUCAGON,HUMAN RECOMB 1 MG INJ SUBCUT PRN (14:25)
[2018-11-03] MEDS ORDERED: NORMAL SALINE 1000 ML 1,000 ML IV PRN (14:25)
[2018-11-03] MEDS ORDERED: ACETAMINOPHEN 325 MG TABLET NG PRN (14:25)
[2018-11-03] MEDS ORDERED: DEXTROSE 40% GEL 15 GM TUBE PO PRN ×2 (14:25)
[2018-11-03] MEDS ORDERED: DEXTROSE 50%-WATER 25 GM/50 ML DISP.SYRIN IV PRN ×2 (14:25)
[2018-11-03] MEDS ORDERED: PHARMACY COMMUNICATION ORDER MC NR (14:30)
[2018-11-03] MEDS ORDERED: LORAZEPAM INJ 2 MG/1 ML VIAL IV PRN ×2 (14:32→14:38)
[2018-11-03 14:44] LABS: APPEARANCE,URINE CLEAR; BILIRUBIN,URINE NEGATIVE (NEGATIVE); COLOR,URINE STRAW; GLUCOSE, URINE NEGATIVE (NEGATIVE); KETONES,URINE TRACE mg/dL (NEGATIVE); LEUKOCYTE ESTERASE,URINE NEGATIVE (NEGATIVE); NITRITE,URINE NEGATIVE (NEGATIVE); PROTEIN,URINE NEGATIVE (NEGATIVE); URINE SPECIFIC GRAVITY 1.005; UROBILINOGEN,URINE NEGATIVE mg/dL (<2.0)
--- NOTE | 2018-11-03 14:49 | PDOC H&P ---
History of Present Illness Admission Date/PCP: 11/03/18 14:12 Patient complains of: Seizure activity from this morning History of Present Illness: CATA CADET is a 63 year old female with history of seizure disorder history of brain aneurysm status post rt craniotomy of parital lobe, hypertension had a seizure at around 10:00 this morning. Family members here to [facility], went to check and found the patient seizing on the floor. They did not noticed any f rothy in the mouth not did not noticed any tongue bite denies any urinary or fecal incontinence. Last seizure was 2 years ago patient is not on any medications at this point. Patient has seizure in 2017 found to have brain aneurysm status post repair. In the emergency room patient was given Keppra 1000 mg IV by the time of my examination patient is alert and awake communicating well. Past Medical History Cardiac Medical History: Reports: Hypertension Neurological Medical History: Reports: Seizures, Other - Brain aneurysm Endocrine Medical History: Denies: Diabetes Mellitus Type 1, Diabetes Mellitus Type 2 Past Surgical History Past Surgical History: Reports: Other - Right-sided craniotomy with removal of the right parietal lobe Social History Information Source: Patient, Relative Lives with: Family Smoking Status: Never Smoker Frequency of Alcohol Use: None Hx Recreational Drug Use: No Hx Prescription Drug Abuse: No - Advance Directive Resuscitation Status: Full Code Family History Family History: Reviewed & Not Pertinent Parental Family History Reviewed: Yes Children Family History Reviewed: Unknown Sibling(s) Family History Reviewed.: Unknown Medication/Allergy Home Medications: Amlodipine Besylate [Norvasc 10 mg Tablet] 10 mg PO DAILY #30 tablet 06/08/18 Levetiracetam [Keppra 500 mg Tablet] 500 mg PO Q12 #60 tablet 06/08/18 Lisinopril [Prinivil] 10 mg PO DAILY #30 tablet 06/08/18 Potassium Chloride 20 meq PO DAILY #30 tab.er.prt 06/08/18 Allergies/Adverse Reactions: codeine Allergy (Verified 06/08/18 11:32) Review of Systems Constitutional: ABSENT: fatigue, fever(s), headache(s), weakness Eyes: ABSENT: visual disturbances Ears: ABSENT: hearing changes Nose, Mouth, and Throat: ABSENT: sore throat Cardiovascular: ABSENT: dyspnea on exertion, orthropnea, palpitations Respiratory: ABSENT: dyspnea, hemoptysis Gastrointestinal: ABSENT: coffee ground emesis, diarrhea, dysphagia, heartburn, hematemesis Genitourinary: ABSENT: dysuria, hematuria Integumentary: ABSENT: rash, wounds Neurological: PRESENT: other - Seizure activity Psychiatric: ABSENT: anxiety, depression, homidical ideation, suicidal ideation Physical Exam Vital Signs: Temp Pulse Resp BP Pulse Ox 98.7 F 82 22 H 211/95 H 11/03/18 10:39 11/03/18 10:39 11/03/18 10:39 11/03/18 10:39 Intake & Output 11/02/18 11/03/18 11/04/18 06:59 06:59 06:59 Intake Total 100 Balance 100 Weight 81.4 kg General appearance: PRESENT: no acute distress, other - Patient is in postictal state slowly recovering Head exam: PRESENT: atraumatic Eye exam: PRESENT: PERRLA Ear exam: PRESENT: normal external ear exam Mouth exam: PRESENT: moist, tongue midline Neck exam: ABSENT: carotid bruit, JVD, lymphadenopathy, thyromegaly Respiratory exam: PRESENT: clear to auscultation som. ABSENT: rales, rhonchi, wheezes Cardiovascular exam: PRESENT: RRR. ABSENT: diastolic murmur, rubs, systolic murmur Pulses: PRESENT: normal dorsalis pedis pul GI/Abdominal exam: PRESENT: normal bowel sounds, soft. ABSENT: distended, guarding, mass, organolmegaly, rebound, tenderness Rectal exam: PRESENT: deferred Extremities exam: PRESENT: full ROM. ABSENT: calf tenderness, clubbing, pedal edema Neurological exam: PRESENT: alert, awake, oriented to person, oriented to place, oriented to time, oriented to situation, CN II-XII grossly intact. ABSENT: motor sensory deficit Psychiatric exam: PRESENT: appropriate affect, normal mood. ABSENT: homicidal ideation, suicidal ideation Results Laboratory Results: 11/03/18 10:35 11/03/18 10:35 11/03/18 11/03/18 10:35 10:35 WBC 7.7 RBC 4.73 Hgb 14.8 Hct 42.8 MCV 91 MCH 31.2 MCHC 34.5 RDW 13.9 Plt Count 275 Seg Neutrophils % 51.1 Lymphocytes % 37.8 Monocytes % 8.4 Eosinophils % 2.1 Basophils % 0.6 Absolute Neutrophils 3.9 Absolute Lymphocytes 2.9 Absolute Monocytes 0.6 Absolute Eosinophils 0.2 Absolute Basophils 0.0 Sodium 141.9 Potassium 3.0 L* Chloride 98 Carbon Dioxide 34 H Anion Gap 10 BUN 11 Creatinine 1.14 Est GFR ( Amer) 58 L Est GFR (Non-Af Amer) 48 L Glucose 105 Calcium 9.6 Total Bilirubin 1.4 H AST 26 ALT 26 Alkaline Phosphatase 83 Total Protein 7.9 Albumin 4.2 11/03/18 10:35 CK-MB (CK-2) 0.55 Troponin I < 0.012 Impressions: Chest X-Ray 11/03/18 10:39 IMPRESSION: HEART ENLARGED WITHOUT FAILURE. NO OTHER SIGNIFICANT RADIOGRAPHIC FINDING IN THE CHEST. Head CT 11/03/18 10:49 IMPRESSION: CHRONIC CHANGES OF ATROPHY AND MICROVASCULAR ISCHEMIA. SURGICAL CHANGES OF RIGHT CRANIOTOMY WITH CHRONIC ENCEPHALOMALACIA IN THE RIGHT PARIETAL LOBE. NO ACUTE PROCESS. EVIDENCE OF ACUTE STROKE: NO. Assessment and Plan - Diagnosis (1) Seizure Is this a current diagnosis for this admission?: Yes Plan: 11/03/2018 patient is going to be admitted to [facility] for seizure activity. We are going to keep her n.p.o., to place NG tube and Basilio's catheter. Started on IV Keppra 500 mg p.o. twice daily, IV Ativan 1 mg IV every hour as needed to prevent seizures. Aspiration fall seizure precautions are requested. GI prophylaxis DVT prophylaxis initiated. (2) Hypertension Is this a current diagnosis for this admission?: No Plan: 11/03/2018 patient came with a systolic blood pressure of 210 and diastolic blood pressure of 90 to start on hydralazine 10 mg IV every 6 as needed for systolic blood pressure more than 160 and started on lisinopril 10 mg p.o. daily. To watch the blood pressures every 4 hours. (3) Hypokalemia Is this a current diagnosis for this admission?: Yes Plan: 11/03/2018-patient serum potassium is 3.0 to give potassium supplementation 40 mg IV daily. Will recheck the labs tomorrow. - Time Time Spent with patient: 15-24 minutes Medications reviewed and adjusted accordingly: Yes Anticipated discharge: Home
[2018-11-03 15:02] LABS: URINE AMPHETAMINES SCREEN NEGATIVE; URINE BARBITURATES SCREEN NEGATIVE; URINE BENZODIAZEPINES SCREEN NEGATIVE; URINE COCAINE SCREEN NEGATIVE; URINE MARIJUANA (THC) SCREEN NEGATIVE; URINE METHADONE SCREEN NEGATIVE; URINE PHENCYCLIDINE SCREEN NEGATIVE
[2018-11-03] MEDS: AMLODIPINE BESYLATE 10 MG TABLET NG SCH (16:40)
[2018-11-03] MEDS: POTASSI CL 20 MEQ/50 ML RIDER 20 MEQ/50 ML RTUPB IV SCH ×2 (16:40→18:37)
--- NOTE | 2018-11-03 17:42 | EKG REPORT ---
SEVERITY:- ABNORMAL ECG - SINUS RHYTHM FIRST DEGREE AV BLOCK LEFT ATRIAL ABNORMALITY NONSPECIFIC IVCD WITH LAD LEFT VENTRICULAR HYPERTROPHY : Confirmed by: Hair Brand MD 03-Nov-2018 17:42:00
[2018-11-03] MEDS: MAGNESIUM SULFATE/D5W 1 GM/100 ML RTUPB IV SCH ×2 (17:52→19:29)
[2018-11-03] MEDS ORDERED: LEVETIRACETAM INJ/PF 500 MG/5 ML SDV IV SCH (18:00)
[2018-11-03] MEDS ORDERED: LEVETIRACETAM 500 MG/NACL-ISO 0 MG/0 ML RTUPB IV ONE (21:56)
[2018-11-03] MEDS ORDERED: FAMOTIDINE INJ/PF 20 MG/2 ML SDV IV SCH (22:00)
[2018-11-03] MEDS ORDERED: LEVETIRACETAM INJ/PF 500 MG/5 ML SDV IV ONE (22:23)
[2018-11-04 04:28] LABS: ABSOLUTE LYMPHOCYTES (AUTO) 1.3 10^3/uL (0.5-4.7); ABSOLUTE MONOCYTES (AUTO) 0.6 10^3/uL (0.1-1.4); ABSOLUTE NEUT (AUTO) 7.9 10^3/uL (1.7-8.2); BASOPHILS % (AUTO) 0.3 % (0-2); EOSINOPHILS % (AUTO) 0.2 % (0-6); HEMATOCRIT 41.4 % (36.0-47.0); HEMOGLOBIN 14.4 g/dL (12.0-15.5); LYMPHOCYTES % (AUTO) 13.5 % (13-45); MEAN CORPUSCULAR HEMOGLOBIN 31.5 pg (27.0-33.4); MEAN CORPUSCULAR HGB CONC 34.7 g/dL (32.0-36.0); MEAN CORPUSCULAR VOLUME 91 fl (80-97); MONOCYTES % (AUTO) 5.6 % (3-13); PLATELET COUNT 262 10^3/uL (150-450); RED BLOOD COUNT 4.56 10^6/uL (3.72-5.28); RED CELL DISTRIBUTION WIDTH 14.1 % (11.5-14.0); SEGMENTED NEUTROPHILS % (AUTO) 80.4 % (42-78); TOTAL CELLS COUNTED % (AUTO) 100 %; WHITE BLOOD COUNT 9.8 10^3/uL (4.0-10.5)
[2018-11-04 04:57] LABS: ALANINE AMINOTRANSFERASE 22 U/L (9-52); ALKALINE PHOSPHATASE 71 U/L (38-126); ANION GAP 9 (5-19); ASPARTATE AMINO TRANSFERASE 21 U/L (14-36); BILIRUBIN,DIRECT 0.3 mg/dL (0.0-0.4); BILIRUBIN,TOTAL 1.4 mg/dL (0.2-1.3); BLOOD UREA NITROGEN 10 mg/dL (7-20); CALCIUM 9.6 mg/dL (8.4-10.2); CARBON DIOXIDE 28 mmol/L (22-30); CHLORIDE 106 mmol/L (98-107); GLUCOSE 115 mg/dL (75-110); POTASSIUM 3.1 mmol/L (3.6-5.0); SODIUM 143.2 mmol/L (137-145); TOTAL PROTEIN 7.6 g/dL (6.3-8.2)
[2018-11-04] MEDS: HYDRALAZINE HCL INJ/PF 20 MG/1 ML SDV IV PRN ×2 (05:38→16:26)
--- NOTE | 2018-11-04 08:33 | PDOC PROGRESS REPORT ---
Subjective Progress Note for:: 11/04/18 Subjective:: 63 year old female with history of seizure disorder history of brain aneurysm status post rt craniotomy of parital lobe, hypertension had a seizure at around 10:00 this morning. Family members here to [facility], went to check and found the patient seizing on the floor. They did not noticed any frothy in the mouth not did not noticed any tongue bite denies any urinary or fecal incontinence. Last seizure was 2 years ago patient is not on any medications at this point. Patient has seizure in 2017 found to have brain aneurysm status post repair. In the emergency room patient was given Keppra 1000 mg IV by the time of my examination patient is alert and awake communicating well. 11/04/2018-patient is comfortably in the bed. Communicating okay. She says she is not hungry this morning. No seizure activity after admission. Afebrile. Vital signs are stable. Blood pressure is 150/88 now. Reason For Visit: SEIZURES Physical Exam Vital Signs: Temp Pulse Resp BP Pulse Ox 98.0 F 76 20 152/88 H 95 11/04/18 05:34 11/04/18 05:34 11/04/18 05:34 11/04/18 06:38 11/04/18 05:34 Intake & Output 11/03/18 11/04/18 11/05/18 06:59 06:59 06:59 Intake Total 400 Output Total 2100 Balance -1700 Weight 71.9 kg General appearance: PRESENT: no acute distress Head exam: PRESENT: atraumatic Eye exam: PRESENT: PERRLA Mouth exam: PRESENT: moist, tongue midline Teeth exam: PRESENT: poor dentation Neck exam: ABSENT: carotid bruit, JVD, lymphadenopathy, thyromegaly Respiratory exam: PRESENT: clear to auscultation som. ABSENT: rales, rhonchi, wheezes Cardiovascular exam: PRESENT: RRR. ABSENT: diastolic murmur, rubs, systolic m urmur GI/Abdominal exam: PRESENT: ascites Rectal exam: PRESENT: deferred Extremities exam: PRESENT: full ROM. ABSENT: calf tenderness, clubbing, pedal edema Neurological exam: PRESENT: alert, awake, oriented to person, oriented to place, oriented to time, oriented to situation, CN II-XII grossly intact. ABSENT: motor sensory deficit Results Laboratory Results: 11/04/18 04:20 11/04/18 04:20 11/03/18 11/03/18 11/03/18 10:35 10:35 14:14 WBC 7.7 RBC 4.73 Hgb 14.8 Hct 42.8 MCV 91 MCH 31.2 MCHC 34.5 RDW 13.9 Plt Count 275 Seg Neutrophils % 51.1 Lymphocytes % 37.8 Monocytes % 8.4 Eosinophils % 2.1 Basophils % 0.6 Absolute Neutrophils 3.9 Absolute Lymphocytes 2.9 Absolute Monocytes 0.6 Absolute Eosinophils 0.2 Absolute Basophils 0.0 Sodium 141.9 Potassium 3.0 L* Chloride 98 Carbon Dioxide 34 H Anion Gap 10 BUN 11 Creatinine 1.14 Est GFR ( Amer) 58 L Est GFR (Non-Af Amer) 48 L Glucose 105 Calcium 9.6 Magnesium Total Bilirubin 1.4 H AST 26 ALT 26 Alkaline Phosphatase 83 Total Protein 7.9 Albumin 4.2 TSH Urine Color STRAW Urine Appearance CLEAR Urine pH 9.0 Ur Specific [place] 1.005 Urine Protein NEGATIVE Urine Glucose (UA) NEGATIVE Urine Ketones TRACE H Urine Blood NEGATIVE Urine Nitrite NEGATIVE Ur Leukocyte Esterase NEGATIVE Urine WBC (Auto) 1 Urine RBC (Auto) 1 11/04/18 11/04/18 11/04/18 04:20 04:20 04:20 WBC 9.8 RBC 4.56 Hgb 14.4 Hct 41.4 MCV 91 MCH 31.5 MCHC 34.7 RDW 14.1 H Plt Count 262 Seg Neutrophils % 80.4 H Lymphocytes % 13.5 Monocytes % 5.6 Eosinophils % 0.2 Basophils % 0.3 Absolute Neutrophils 7.9 Absolute Lymphocytes 1.3 Absolute Monocytes 0.6 Absolute Eosinophils 0.0 Absolute Basophils 0.0 Sodium 143.2 Potassium 3.1 L Chloride 106 Carbon Dioxide 28 Anion Gap 9 BUN 10 Creatinine 0.93 Est GFR ( Amer) > 60 Est GFR (Non-Af Amer) > 60 Glucose 115 H Calcium 9.6 Magnesium 2.4 H Total Bilirubin 1.4 H AST 21 ALT 22 Alkaline Phosphatase 71 Total Protein 7.6 Albumin 4.0 TSH 1.27 Urine Color Urine Appearance Urine pH Ur Specific [place] Urine Protein Urine Glucose (UA) Urine Ketones Urine Blood Urine Nitrite Ur Leukocyte Esterase Urine WBC (Auto) Urine RBC (Auto) 11/03/18 11/03/18 11/03/18 10:35 16:40 16:40 Creatine Kinase 95 CK-MB (CK-2) 0.55 Troponin I < 0.012 < 0.012 11/03/18 11/03/18 11/04/18 22:49 22:49 04:20 Creatine Kinase 57 55 CK-MB (CK-2) Troponin I < 0.012 11/04/18 04:20 Creatine Kinase CK-MB (CK-2) Troponin I < 0.012 Impressions: Chest X-Ray 11/03/18 10:39 IMPRESSION: HEART ENLARGED WITHOUT FAILURE. NO OTHER SIGNIFICANT RADIOGRAPHIC FINDING IN THE CHEST. Head CT 11/03/18 10:49 IMPRESSION: CHRONIC CHANGES OF ATROPHY AND MICROVASCULAR ISCHEMIA. SURGICAL CHANGES OF RIGHT CRANIOTOMY WITH CHRONIC ENCEPHALOMALACIA IN THE RIGHT PARIETAL LOBE. NO ACUTE PROCESS. EVIDENCE OF ACUTE STROKE: NO. Assessment and Plan - Diagnosis (1) Seizure Is this a current diagnosis for this admission?: Yes Plan: 11/03/2018 patient is going to be admitted to [facility] for seizure activity. We are going to keep her n.p.o., to place NG tube and Basilio's catheter. Started on IV Keppra 500 mg p.o. twice daily, IV Ativan 1 mg IV every hour as needed to prevent seizures. Aspiration fall seizure precautions are requested. GI prophylaxis DVT prophylaxis initiated. 11/04/2018-patient admitted with seizure activity and altered mental status in the emergency room she was given 1 g of Keppra and she was kept n.p.o.'s placed on Basilio's catheter put on NG tube she pulled out NG tube yesterday no seizure activity. Plan to start on regular diet and restart on p.o. Keppra from today. Plan to remove the Basilio's catheter. CT head was negative. (2) Hypertension Is this a current diagnosis for this admission?: No Plan: 11/03/2018 patient came with a systolic blood pressure of 210 and diastolic blood pressure of 90 to start on hydralazine 10 mg IV every 6 as needed for systolic blood pressure more than 160 and started on lisinopril 10 mg p.o. daily. To watch the blood pressures every 4 hours. 11/04/2018-latest blood pressure is 150/88. Improved. Plan to restart her on p.o. medications and discontinue IV fluids from today. (3) Hypokalemia Is this a current diagnosis for this admission?: Yes Plan: 11/03/2018-patient serum potassium is 3.0 to give potassium supplementation 40 mg IV daily. Will recheck the labs tomorrow. 019-serum potassium level is 3.1 this morning to give 40 mg of IV potassium today and recheck the labs tomorrow. - Time Time Spent with patient: 15-24 minutes Medications reviewed and adjusted accordingly: Yes Anticipated discharge: Home
[2018-11-04] MEDS: POTASSI CL 20 MEQ/50 ML RIDER 20 MEQ/50 ML RTUPB IV SCH ×2 (08:55→10:56)
[2018-11-04] MEDS: FAMOTIDINE 20 MG TABLET PO SCH ×2 (09:36→21:34)
[2018-11-04] MEDS: ENOXAPARIN SODIUM INJ 40 MG/0.4 ML DISP.SYRIN SUBCUT SCH (09:36)
[2018-11-04] MEDS: AMLODIPINE BESYLATE 10 MG TABLET NG SCH (09:36)
[2018-11-04] MEDS: ONDANSETRON HCL INJ/PF 4 MG/2 ML SDV IV PRN ×2 (11:58→23:46)
[2018-11-05 06:00] LABS: ABSOLUTE LYMPHOCYTES (AUTO) 1.3 10^3/uL (0.5-4.7); ABSOLUTE MONOCYTES (AUTO) 0.3 10^3/uL (0.1-1.4); ABSOLUTE NEUT (AUTO) 5.2 10^3/uL (1.7-8.2); BASOPHILS % (AUTO) 0.3 % (0-2); EOSINOPHILS % (AUTO) 0.2 % (0-6); LYMPHOCYTES % (AUTO) 18.7 % (13-45); MEAN CORPUSCULAR HEMOGLOBIN 31.5 pg (27.0-33.4); MEAN CORPUSCULAR HGB CONC 34.9 g/dL (32.0-36.0); MEAN CORPUSCULAR VOLUME 90 fl (80-97); MONOCYTES % (AUTO) 4.8 % (3-13); PLATELET COUNT 267 10^3/uL (150-450); RED BLOOD COUNT 4.77 10^6/uL (3.72-5.28); RED CELL DISTRIBUTION WIDTH 14.2 % (11.5-14.0); TOTAL CELLS COUNTED % (AUTO) 100 %; WHITE BLOOD COUNT 6.9 10^3/uL (4.0-10.5)
[2018-11-05 06:28] LABS: ALANINE AMINOTRANSFERASE 21 U/L (9-52); ALBUMIN 4.3 g/dL (3.5-5.0); ALKALINE PHOSPHATASE 75 U/L (38-126); ANION GAP 13 (5-19); ASPARTATE AMINO TRANSFERASE 18 U/L (14-36); BILIRUBIN,DIRECT 0.3 mg/dL (0.0-0.4); BILIRUBIN,TOTAL 1.5 mg/dL (0.2-1.3); BLOOD UREA NITROGEN 12 mg/dL (7-20); CARBON DIOXIDE 27 mmol/L (22-30); CHLORIDE 103 mmol/L (98-107); GLUCOSE 106 mg/dL (75-110); SODIUM 143.1 mmol/L (137-145); TOTAL PROTEIN 8.1 g/dL (6.3-8.2)
[2018-11-05] MEDS ORDERED: POTASSIUM CHLORIDE 20 MEQ PACKET NG SCH (08:00)
[2018-11-05] MEDS: AMLODIPINE BESYLATE 10 MG TABLET PO SCH (09:25)
[2018-11-05] MEDS: POTASSIUM CHLORIDE 10 MEQ CAPSULE.ER PO SCH ×3 (09:25→17:54)
[2018-11-05] MEDS: ENOXAPARIN SODIUM INJ 40 MG/0.4 ML DISP.SYRIN SUBCUT SCH (09:26)
[2018-11-05] MEDS: FAMOTIDINE 20 MG TABLET PO SCH ×2 (09:26→22:44)
[2018-11-05] MEDS: HYDRALAZINE HCL INJ/PF 20 MG/1 ML SDV IV PRN (11:28)
--- NOTE | 2018-11-05 15:20 | PDOC PROGRESS REPORT ---
Subjective Progress Note for:: 11/05/18 Subjective:: 63 year old female with history of seizure disorder history of brain aneurysm status post rt craniotomy of parital lobe, hypertension had a seizure at around 10:00 this morning. Family members here to [facility], went to check and found the patient seizing on the floor. They did not noticed any frothy in the mouth not did not noticed any tongue bite denies any urinary or fecal incontinence. Last seizure was 2 years ago patient is not on any medications at this point. Patient has seizure in 2017 found to have brain aneurysm status post repair. In the emergency room patient was given Keppra 1000 mg IV by the time of my examination patient is alert and awake communicating well. 11/04/2018-patient is comfortably in the bed. Communicating okay. She says she is not hungry this morning. No seizure activity after admission. Afebrile. Vital signs are stable. Blood pressure is 150/88 now. 11/05/2018patient is comfortable. Although she does not feel well. She has not had any seizures whatsoever. She complains of nausea and right upper quadrant tenderness and pain. She is able to tolerate some liquids. She also mentioned that she felt dizzy when she started to get up out of bed. Reason For Visit: SEIZURES Physical Exam Vital Signs: Temp Pulse Resp BP Pulse Ox 97.9 F 98 18 164/95 H 98 11/05/18 07:40 11/05/18 14:00 11/05/18 07:40 11/05/18 07:40 11/05/18 07:40 Intake & Output 11/04/18 11/05/18 11/06/18 06:59 06:59 06:59 Intake Total 400 895 Output Total 2100 1025 Balance -1700 -130 Weight 158 lb 8.198 oz 156 lb 1.396 oz Exam: Patient is no acute distress Alert oriented to time place person No anxiety or depression Head atraumatic normocephalic Pupils are equal reactive Neck is supple and trachea is central no lymphadenopathy No pharyngeal erythema or exudates Regular rate and rhythm Lungs clear no distress Abdomen mild right upper quadrant tenderness, nondistended Neurological exam unremarkable No joint swelling or effusion chronic lower back pain and tenderness Both legs are edematous and erythematous and tender Suicidal homicidal ideation Results Laboratory Results: 11/05/18 04:59 11/05/18 04:59 11/05/18 11/05/18 04:59 04:59 WBC 6.9 RBC 4.77 Hgb 15.0 Hct 43.0 MCV 90 MCH 31.5 MCHC 34.9 RDW 14.2 H Plt Count 267 Seg Neutrophils % 76.0 Lymphocytes % 18.7 Monocytes % 4.8 Eosinophils % 0.2 Basophils % 0.3 Absolute Neutrophils 5.2 Absolute Lymphocytes 1.3 Absolute Monocytes 0.3 Absolute Eosinophils 0.0 Absolute Basophils 0.0 Sodium 143.1 Potassium 3.0 L* Chloride 103 Carbon Dioxide 27 Anion Gap 13 BUN 12 Creatinine 0.78 Est GFR ( Amer) > 60 Est GFR (Non-Af Amer) > 60 Glucose 106 Calcium 10.0 Magnesium 2.2 Total Bilirubin 1.5 H AST 18 ALT 21 Alkaline Phosphatase 75 Total Protein 8.1 Albumin 4.3 11/03/18 11/03/18 11/03/18 10:35 16:40 16:40 Creatine Kinase 95 CK-MB (CK-2) 0.55 Troponin I < 0.012 < 0.012 11/03/18 11/03/18 11/04/18 22:49 22:49 04:20 Creatine Kinase 57 55 CK-MB (CK-2) Troponin I < 0.012 11/04/18 04:20 Creatine Kinase CK-MB (CK-2) Troponin I < 0.012 Impressions: Chest X-Ray 11/03/18 10:39 IMPRESSION: HEART ENLARGED WITHOUT FAILURE. NO OTHER SIGNIFICANT RADIOGRAPHIC FINDING IN THE CHEST. Head CT 11/03/18 10:49 IMPRESSION: CHRONIC CHANGES OF ATROPHY AND MICROVASCULAR ISCHEMIA. SURGICAL CHANGES OF RIGHT CRANIOTOMY WITH CHRONIC ENCEPHALOMALACIA IN THE RIGHT PARIETAL LOBE. NO ACUTE PROCESS. EVIDENCE OF ACUTE STROKE: NO. Assessment and Plan - Diagnosis (1) Seizure Is this a current diagnosis for this admission?: Yes Plan: 11/03/2018 patient is going to be admitted to [facility] for seizure activity. We are going to keep her n.p.o., to place NG tube and Basilio's catheter. Started on IV Keppra 500 mg p.o. twice daily, IV Ativan 1 mg IV every hour as needed to prevent seizures. Aspiration fall seizure precautions are requested. GI prophylaxis DVT prophylaxis initiated. 11/04/2018-patient admitted with seizure activity and altered mental status in the emergency room she was given 1 g of Keppra and she was kept n.p.o.'s placed on Basilio's catheter put on NG tube she pulled out NG tube yesterday no seizure activity. Plan to start on regular diet and restart on p.o. Keppra from today. Plan to remove the Basilio's catheter. CT head was negative. 11/05/2018no seizure activity since admission. Continue oral Keppra and IV Ativan as needed. (2) Hypertension Is this a current diagnosis for this admission?: No Plan: 11/03/2018 patient came with a systolic blood pressure of 210 and diastolic blood pressure of 90 to start on hydralazine 10 mg IV every 6 as needed for systolic blood pressure more than 160 and started on lisinopril 10 mg p.o. daily. To watch the blood pressures every 4 hours. 11/04/2018-latest blood pressure is 150/88. Improved. Plan to restart her on p.o. medications and discontinue IV fluids from today. 10/25/2018-continue current medications. Continue to monitor blood pressure. (3) Hypokalemia Is this a current diagnosis for this admission?: Yes Plan: 11/03/2018-patient serum potassium is 3.0 to give potassium supplementation 40 mg IV daily. Will recheck the labs tomorrow. 11/04/2018-serum potassium level is 3.1 this morning to give 40 mg of IV potassium today and recheck the labs tomorrow. 11/05/2018potassium levels 3.0 today. Continue potassium replacement and monitor potassium levels. (4) Abdominal pain Is this a current diagnosis for this admission?: Yes Plan: Check right upper quadrant ultrasound (5) Nausea Is this a current diagnosis for this admission?: Yes Plan: Continue Zofran as needed. Start IV fluids. (6) Dizziness Is this a current diagnosis for this admission?: Yes Plan: Check orthostatic vital signs.
[2018-11-05] MEDS: 1/2 NORMAL SALINE 1,000 ML IV PRN (17:58)
[2018-11-05] MEDS: ACETAMINOPHEN 325 MG TABLET PO PRN (18:02)
[2018-11-06 06:06] LABS: ALANINE AMINOTRANSFERASE 18 U/L (9-52); ALBUMIN 4.1 g/dL (3.5-5.0); ALKALINE PHOSPHATASE 77 U/L (38-126); ANION GAP 15 (5-19); ASPARTATE AMINO TRANSFERASE 15 U/L (14-36); BILIRUBIN,DIRECT 0.3 mg/dL (0.0-0.4); BILIRUBIN,TOTAL 1.7 mg/dL (0.2-1.3); BLOOD UREA NITROGEN 14 mg/dL (7-20); CARBON DIOXIDE 25 mmol/L (22-30); CHLORIDE 101 mmol/L (98-107); GLUCOSE 105 mg/dL (75-110); SODIUM 141.1 mmol/L (137-145); TOTAL PROTEIN 7.8 g/dL (6.3-8.2)
[2018-11-06 06:33] LABS: POTASSIUM 2.9 mmol/L (3.6-5.0)
[2018-11-06] MEDS: POTASSIUM CHLORIDE 10 MEQ CAPSULE.ER PO SCH ×2 (08:44→12:30)
[2018-11-06] MEDS: HYDRALAZINE HCL INJ/PF 20 MG/1 ML SDV IV PRN (08:45)
[2018-11-06] MEDS: 1/2 NORMAL SALINE 1,000 ML IV PRN (08:53)
[2018-11-06] MEDS ORDERED: POTASSIUM CHLORIDE 10 MEQ CAPSULE.ER PO ONE (09:00)
[2018-11-06] MEDS: POTASSI CL 20 MEQ/50 ML RIDER 20 MEQ/50 ML RTUPB IV SCH ×3 (09:55→13:25)
[2018-11-06] MEDS: FAMOTIDINE 20 MG TABLET PO SCH ×2 (10:51→21:12)
[2018-11-06] MEDS: AMLODIPINE BESYLATE 10 MG TABLET PO SCH (10:51)
[2018-11-06] MEDS: ENOXAPARIN SODIUM INJ 40 MG/0.4 ML DISP.SYRIN SUBCUT SCH (10:52)
--- NOTE | 2018-11-06 10:55 | RADIOLOGY REPORT (SQ) ---
EXAM DESCRIPTION: U/S ABDOMEN LIMITED W/O DOP COMPLETED DATE/TIME: 11/06/2018 10:43 am REASON FOR STUDY: pain COMPARISON: None. TECHNIQUE: Dynamic and static grayscale images acquired of the abdomen and recorded on PACS. Additio nal selected color Doppler and spectral images recorded. LIMITATIONS: None. FINDINGS: PANCREAS: No masses. Visualized pancreatic duct normal caliber. LIVER: Mild hepatomegaly. Cranial caudal dimensions is measured at 17.1 cm. Echo texture normal. No focal masses. LIVER VASCULATURE: Normal directional flow of the main portal vein and hepatic veins. GALLBLADDER: The gallbladder is filled with stones and sludge. ULTRASOUND-DETECTED VAZQUEZ'S SIGN: Negative. INTRAHEPATIC DUCTS AND COMMON DUCT: CBD and intrahepatic ducts normal caliber. No filling defects. INFERIOR VENA CAVA: Normal flow. AORTA: No aneurysm. RIGHT KIDNEY: Normal size. Normal echogenicity. No solid or suspicious masses. No hydronephros is. No calcifications. PERITONEAL AND RIGHT PLEURAL SPACE: No ascites or effusions. OTHER: No other significant findings. IMPRESSION: Small gallbladder stones and sludge. Negative sonographic Vazquez's sign. Mild hepatome darío. TECHNICAL DOCUMENTATION: JOB ID: [id number] [employer]- All Rights Reserved Reading location - IP/workstation name: [email or web address]
[2018-11-06] MEDS ORDERED: HYDRALAZINE HCL INJ/PF 20 MG/1 ML SDV IV PRN (13:00)
[2018-11-06] MEDS ORDERED: ONDANSETRON HCL INJ/PF 4 MG/2 ML SDV IV PRN (13:00)
[2018-11-06] MEDS: HYDRALAZINE HCL 25 MG TABLET PO SCH ×2 (13:25→21:12)
--- NOTE | 2018-11-06 14:19 | PDOC PROGRESS REPORT ---
Subjective Progress Note for:: 11/06/18 Subjective:: 63 year old female with history of seizure disorder history of brain aneurysm status post rt craniotomy of parital lobe, hypertension had a seizure at around 10:00 this morning. Family members here to [facility], went to check and found the patient seizing on the floor. They did not noticed any frothy in the mouth not did not noticed any tongue bite denies any urinary or fecal incontinence. Last seizure was 2 years ago patient is not on any medications at this point. Patient has seizure in 2017 found to have brain aneurysm status post repair. In the emergency room patient was given Keppra 1000 mg IV by the time of my examination patient is alert and awake communicating well. 11/04/2018-patient is comfortably in the bed. Communicating okay. She says she is not hungry this morning. No seizure activity after admission. Afebrile. Vital signs are stable. Blood pressure is 150/88 now. 11/05/2018patient is comfortable. Although she does not feel well. She has not had any seizures whatsoever. She complains of nausea and right upper quadrant tenderness and pain. She is able to tolerate some liquids. She also mentioned that she felt dizzy when she started to get up out of bed. 11/06/2018: Patient has not had any seizures since admission. Now she is tolerating diet very well. Renal ultrasound showed gallstones without cholecystitis. Positive orthostatic hypotension likely from dehydration from vomiting Physical examination: Patient is no acute distress Alert oriented to time place person No anxiety or depression Head atraumatic normocephalic Pupils are equal reactive Neck is supple and trachea is central no lymphadenopathy No pharyngeal erythema or exudates Regular rate and rhythm Lungs clear no distress Abdomen nontender, nondistended Neurological exam unremarkable No joint swelling or effusion chronic lower back pain and tenderness Both legs are edematous and erythematous and tender Suicidal homicidal ideation Assessment and Plan (1) Seizure 11/03/2018 patient is going to be admitted to [facility] for seizure activity. We are going to keep her n.p.o., to place NG tube and Basilio's catheter. Started on IV Keppra 500 mg p.o. twice daily, IV Ativan 1 mg IV every hour as needed to prevent seizures. Aspiration fall seizure precautions are requested. GI prophylaxis DVT prophylaxis initiated. 11/04/2018-patient admitted with seizure activity and altered mental status in the emergency room she was given 1 g of Keppra and she was kept n.p.o.'s placed on Basilio's catheter put on NG tube she pulled out NG tube yesterday no seizure activity. Plan to start on regular diet and restart on p.o. Keppra from today. Plan to remove the Basilio's catheter. CT head was negative. 11/05/2018no seizure activity since admission. Continue oral Keppra and IV Ativan as needed. 11/06/12: Still no seizures. (2) Hypertension 11/03/2018 patient came with a systolic blood pressure of 210 and diastolic blood pressure of 90 to start on hydralazine 10 mg IV every 6 as needed for systolic blood pressure more than 160 and started on lisinopril 10 mg p.o. daily. To watch the blood pressures every 4 hours. 11/04/2018-latest blood pressure is 150/88. Improved. Plan to restart her on p.o. medications and discontinue IV fluids from today. 11/05/2018-continue current medications. Continue to monitor blood pressure. 11/06/2018: Add oral hydralazine says blood pressures not well controlled. (3) Hypokalemia 11/03/2018-patient serum potassium is 3.0 to give potassium supplementation 40 mg IV daily. Will recheck the labs tomorrow. 11/04/2018-serum potassium level is 3.1 this morning to give 40 mg of IV po tassium today and recheck the labs tomorrow. 11/05/2018potassium levels 3.0 today. Continue potassium replacement and monitor potassium levels. 11/06/18: Potassium levels 2.9 today. Aggressive potassium replacement. Check magnesium levels. Monitor potassium levels. (4) Abdominal pain Check right upper quadrant ultrasound 11/06/17: Ultrasound positive for gallstones and sludge without cholecystitis. Pain has resolved now. She was advised to follow-up with surgery outpatient. (5) Nausea Continue Zofran as needed. Start IV fluids. 11/06/2018: DC IV fluids since she is eating drinking fine now. (6) Dizziness 11/06/2018: Positive orthostatic hypotension. Likely from dehydration from vomiting. She received IV fluid hydration. Now she is not vomiting anymore. Repeat orthostatic vital signs in the morning. Reason For Visit: SEIZURES Physical Exam Vital Signs: Temp Pulse Resp BP Pulse Ox 97.9 F 76 16 157/90 H 100 11/06/18 11:54 11/06/18 11:54 11/06/18 11:54 11/06/18 11:54 11/06/18 11:54 Intake & Output 11/05/18 11/06/18 11/07/18 06:59 06:59 06:59 Intake Total 237 399 6915 Output Total 1025 820 Balance -130 -500 1088 Weight 156 lb 1.396 oz 154 lb 8.705 oz Results Laboratory Results: 11/05/18 04:59 11/06/18 05:08 11/06/18 05:08 Sodium 141.1 Potassium 2.9 L* Chloride 101 Carbon Dioxide 25 Anion Gap 15 BUN 14 Creatinine 0.69 Est GFR ( Amer) > 60 Est GFR (Non-Af Amer) > 60 Glucose 105 Calcium 10.0 Total Bilirubin 1.7 H AST 15 ALT 18 Alkaline Phosphatase 77 Total Protein 7.8 Albumin 4.1 11/03/18 11/03/18 11/03/18 10:35 16:40 16:40 Creatine Kinase 95 CK-MB (CK-2) 0.55 Troponin I < 0.012 < 0.012 11/03/18 11/03/18 11/04/18 22:49 22:49 04:20 Creatine Kinase 57 55 CK-MB (CK-2) Troponin I < 0.012 11/04/18 04:20 Creatine Kinase CK-MB (CK-2) Troponin I < 0.012 Impressions: Chest X-Ray 11/03/18 10:39 IMPRESSION: HEART ENLARGED WITHOUT FAILURE. NO OTHER SIGNIFICANT RADIOGRAPHIC FINDING IN THE CHEST. Head CT 11/03/18 10:49 IMPRESSION: CHRONIC CHANGES OF ATROPHY AND MICROVASCULAR ISCHEMIA. SURGICAL CHANGES OF RIGHT CRANIOTOMY WITH CHRONIC ENCEPHALOMALACIA IN THE RIGHT PARIETAL LOBE. NO ACUTE PROCESS. EVIDENCE OF ACUTE STROKE: NO. Abdomen Ultrasound 11/06/18 00:00 IMPRESSION: Small gallbladder stones and sludge. Negative sonographic Vazquez's sign. Mild hepatomegaly. Assessment and Plan - Diagnosis (1) Seizure Is this a current diagnosis for this admission?: Yes (2) Hypertension Is this a current diagnosis for this admission?: No (3) Hypokalemia Is this a current diagnosis for this admission?: Yes (4) Abdominal pain Is this a current diagnosis for this admission?: Yes (5) Nausea Is this a current diagnosis for this admission?: Yes (6) Dizziness Is this a current diagnosis for this admission?: Yes
[2018-11-06 17:52] LABS: ALANINE AMINOTRANSFERASE 21 U/L (9-52); ALBUMIN 4.2 g/dL (3.5-5.0); ALKALINE PHOSPHATASE 78 U/L (38-126); ANION GAP 12 (5-19); ASPARTATE AMINO TRANSFERASE 15 U/L (14-36); BLOOD UREA NITROGEN 15 mg/dL (7-20); CALCIUM 10.5 mg/dL (8.4-10.2); CARBON DIOXIDE 26 mmol/L (22-30); CHLORIDE 102 mmol/L (98-107); GLUCOSE 123 mg/dL (75-110); POTASSIUM 3.5 mmol/L (3.6-5.0); SODIUM 139.7 mmol/L (137-145); TOTAL PROTEIN 8.3 g/dL (6.3-8.2)
[2018-11-06 17:56] LABS: BILIRUBIN,TOTAL 1.7 mg/dL (0.2-1.3)
[2018-11-06 18:10] LABS: BILIRUBIN,DIRECT 0.5 mg/dL (0.0-0.4)
[2018-11-06] MEDS: ACETAMINOPHEN 325 MG TABLET PO PRN (20:32)
[2018-11-07] MEDS: HYDRALAZINE HCL 25 MG TABLET PO SCH (05:12)
[2018-11-07 05:51] LABS: ANION GAP 12 (5-19); BLOOD UREA NITROGEN 16 mg/dL (7-20); CALCIUM 9.9 mg/dL (8.4-10.2); CARBON DIOXIDE 25 mmol/L (22-30); CHLORIDE 104 mmol/L (98-107); GLUCOSE 97 mg/dL (75-110); POTASSIUM 3.3 mmol/L (3.6-5.0); SODIUM 141.2 mmol/L (137-145)
[2018-11-07] MEDS: 1/2 NORMAL SALINE 1,000 ML IV PRN (07:27)
[2018-11-07] MEDS ORDERED: POTASSIUM CHLORIDE 10 MEQ CAPSULE.ER PO ONE (08:04)
[2018-11-07] MEDS: POTASSI CL 20 MEQ/50 ML RIDER 20 MEQ/50 ML RTUPB IV SCH ×2 (08:52→10:25)
[2018-11-07] MEDS: FAMOTIDINE 20 MG TABLET PO SCH (10:25)
[2018-11-07] MEDS: AMLODIPINE BESYLATE 10 MG TABLET PO SCH (10:25)
[2018-11-07] MEDS: ENOXAPARIN SODIUM INJ 40 MG/0.4 ML DISP.SYRIN SUBCUT SCH (10:25)
--- NOTE | 2018-11-07 13:35 | PDOC DISCHARGE SUMMARY ---
General - Admit/Disc Date/PCP Admission Date/Primary Care Provider: 11/03/18 14:12 Discharge Date: 11/07/18 - Discharge Diagnosis (1) Seizure Is this a current diagnosis for this admission?: Yes (2) Hypertension Is this a current diagnosis for this admission?: No (3) Hypokalemia Is this a current diagnosis for this admission?: Yes (4) Abdominal pain Is this a current diagnosis for this admission?: Yes (5) Nausea Is this a current diagnosis for this admission?: Yes (6) Dizziness Is this a current diagnosis for this admission?: Yes - Additional Information Resuscitation Status: Full Code Discharge Diet: As Tolerated Discharge Activity: Activity As Tolerated, Other - seziure precautions. no driving Prescriptions: Hydralazine HCl [Apresoline 25 mg Tablet] 50 mg PO Q8 #90 tablet Home Medications: Amlodipine Besylate [Norvasc 10 mg Tablet] 10 mg PO 11/03/18 Atorvastatin Calcium [Lipitor 80 mg Tablet] 80 mg PO 11/03/18 Levetiracetam [Keppra 500 mg Tablet] 500 mg PO 11/03/18 Potassium Chloride [Klor-Con M20] 20 meq PO 11/03/18 Hydralazine HCl [Apresoline 25 mg Tablet] 50 mg PO Q8 #90 tablet 11/07/18 History of Present Illness History of Present Illness: CATA CADET is a 63 year old female Hospital Course Hospital Course: 63 year old female with history of seizure disorder history of brain aneurysm status post rt craniotomy of parital lobe, hypertension had a seizure at around 10:00 this morning. Family members here to [facility], went to check and found the patient seizing on the floor. They did not noticed any frothy in the mouth not did not noticed any tongue bite denies any urinary or fecal incontinence. Last seizure was 2 years ago patient is not on any medications at this point. Patient has seizure in 2017 found to have brain aneurysm status post repair. In the emergency room patient was given Keppra 1000 mg IV by the time of my e xamination patient is alert and awake communicating well. 11/04/2018-patient is comfortably in the bed. Communicating okay. She says she is not hungry this morning. No seizure activity after admission. Afebrile. Vital signs are stable. Blood pressure is 150/88 now. 11/05/2018patient is comfortable. Although she does not feel well. She has not had any seizures whatsoever. She complains of nausea and right upper quadrant tenderness and pain. She is able to tolerate some liquids. She also mentioned that she felt dizzy when she started to get up out of bed. 11/06/2018: Patient has not had any seizures since admission. Now she is tolerating diet very well. Renal ultrasound showed gallstones without cholecystitis. Positive orthostatic hypotension likely from dehydration from vomiting Physical examination: Patient is no acute distress Alert oriented to time place person No anxiety or depression Head atraumatic normocephalic Pupils are equal reactive Neck is supple and trachea is central no lymphadenopathy No pharyngeal erythema or exudates Regular rate and rhythm Lungs clear no distress Abdomen nontender, nondistended Neurological exam unremarkable No joint swelling or effusion chronic lower back pain and tenderness Both legs are edematous and erythematous and tender Suicidal homicidal ideation Assessment and Plan (1) Seizure 11/03/2018 patient is going to be admitted to [facility] for seizure activity. We are going to keep her n.p.o., to place NG tube and Basilio's catheter. Started on IV Keppra 500 mg p.o. twice daily, IV Ativan 1 mg IV every hour as needed to prevent seizures. Aspiration fall seizure precautions are requested. GI prophylaxis DVT prophylaxis initiated. 11/04/2018-patient admitted with seizure activity and altered mental status in the emergency room she was given 1 g of Keppra and she was kept n.p.o.'s placed on Basilio's catheter put on NG tube she pulled out NG tube yesterday no seizure activity. Plan to start on regular diet and restart on p.o. Keppra from today. Plan to remove the Basilio's catheter. CT head was negative. 11/05/2018no seizure activity since admission. Continue oral Keppra and IV Ativan as needed. 11/06/12: Still no seizures. (2) Hypertension 11/03/2018 patient came with a systolic blood pressure of 210 and diastolic blood pressure of 90 to start on hydralazine 10 mg IV every 6 as needed for systolic blood pressure more than 160 and started on lisinopril 10 mg p.o. daily. To watch the blood pressures every 4 hours. 11/04/2018-latest blood pressure is 150/88. Improved. Plan to restart her on p.o. medications and discontinue IV fluids from today. 11/05/2018-continue current medications. Continue to monitor blood pressure. 11/06/2018: Add oral hydralazine says blood pressures not well controlled. (3) Hypokalemia 11/03/2018-patient serum potassium is 3.0 to give potassium supplementation 40 mg IV daily. Will recheck the labs tomorrow. 11/04/2018-serum potassium level is 3.1 this morning to give 40 mg of IV potassium today and recheck the labs tomorrow. 11/05/2018potassium levels 3.0 today. Continue potassium replacement and monitor potassium levels. 11/06/18: Potassium levels 2.9 today. Aggressive potassium replacement. Check magnesium levels. Monitor potassium levels. (4) Abdominal pain Check right upper quadrant ultrasound 11/06/17: Ultrasound positive for gallstones and sludge without cholecystitis. Pain has resolved now. She was advised to follow-up with surgery outpatient. (5) Nausea Continue Zofran as needed. Start IV fluids. 11/06/2018: DC IV fluids since she is eating drinking fine now. (6) Dizziness 11/06/2018: Positive orthostatic hypotension. Likely from dehydration from vomiting. She received IV fluid hydration. Now she is not vomiting anymore. Repeat orthostatic vital signs in the morning. Patient is feeling much better. He is back to her baseline. Potassium levels improved was replacement. She was advised to follow-up with primary care physician, neurology and surgery after discharge. Time spent on discharge 37 minutes. Physical Exam Vital Signs: Temp Pulse Resp BP Pulse Ox 97.5 F 98 19 150/90 H 99 11/07/18 11:24 11/07/18 11:26 11/07/18 11:24 11/07/18 12:39 11/07/18 11:26 Intake & Output 11/06/18 11/07/18 11/08/18 06:59 06:59 06:59 Intake Total 320 3088 679 Output Total 820 Balance -500 3088 679 Weight 154 lb 8.705 oz 151 lb 3.794 oz Results Laboratory Results: 11/05/18 04:59 11/07/18 04:47 11/06/18 11/07/18 16:54 04:47 Sodium 139.7 141.2 Potassium 3.5 L 3.3 L Chloride 102 104 Carbon Dioxide 26 25 Anion Gap 12 12 BUN 15 16 Creatinine 0.76 0.77 Est GFR ( Amer) > 60 > 60 Est GFR (Non-Af Amer) > 60 > 60 Glucose 123 H 97 Calcium 10.5 H 9.9 Magnesium 2.0 Total Bilirubin 1.7 H AST 15 ALT 21 Alkaline Phosphatase 78 Total Protein 8.3 H Albumin 4.2 11/03/18 11/03/18 11/03/18 10:35 16:40 16:40 Creatine Kinase 95 CK-MB (CK-2) 0.55 Troponin I < 0.012 < 0.012 11/03/18 11/03/18 11/04/18 22:49 22:49 04:20 Creatine Kinase 57 55 CK-MB (CK-2) Troponin I < 0.012 11/04/18 04:20 Creatine Kinase CK-MB (CK-2) Troponin I < 0.012 Impressions: Chest X-Ray 11/03/18 10:39 IMPRESSION: HEART ENLARGED WITHOUT FAILURE. NO OTHER SIGNIFICANT RADIOGRAPHIC FINDING IN THE CHEST. Head CT 11/03/18 10:49 IMPRESSION: CHRONIC CHANGES OF ATROPHY AND MICROVASCULAR ISCHEMIA. SURGICAL CHANGES OF RIGHT CRANIOTOMY WITH CHRONIC ENCEPHALOMALACIA IN THE RIGHT PARIETAL LOBE. NO ACUTE PROCESS. EVIDENCE OF ACUTE STROKE: NO. Abdomen Ultrasound 11/06/18 00:00 IMPRESSION: Small gallbladder stones and sludge. Negative sonographic Vazquez's sign. Mild hepatomegaly. Qualifiers - * PATIENT BEING DISCHARGED WITH ANY OF THE FOLLOWING DIAGNOSIS: No Acute Heart Failure Is this a Heart Failure Patient?: No
[2018-11-07] MEDS ORDERED: HYDRALAZINE HCL 25 MG TABLET PO SCH (14:00)
[2018-11-07 15:28] VITALS: BP 166/88
== END 2018-11-07 17:13 | disposition home or self-care (01) | DRG 101 ==
LOC: ER 10:26 → EH 14:12 → 3N 17:04
PROVIDERS: ADMIT Internal Medicine; ATTEND Internal Medicine
DX: G40.802 Other epilepsy, not intractable, without status epilepticus (principal); I95.1 Orthostatic hypotension; R42 Dizziness and giddiness; E87.6 Hypokalemia; E86.0 Dehydration; I10 Essential (primary) hypertension; G93.89 Other specified disorders of brain; Z86.73 Personal history of transient ischemic attack (TIA), and cerebral infarction without residual deficits
CPT/HCPCS: 36415; 70450; 71045; 76705; 80048; 80053; 80076; 80307; 81001; 82550; 82553; 83735; 84443; 84484; 85025; 85610; 93005; 93010; 96365; 96375; 99291; J0360; J1650; J1953; J2405; J3475; J3480; J7030; S0028

== ENCOUNTER 2019-02-19 09:52 | Day surgery (SDC) | payer MEDICAID ==
[~2019-02-19 09:52] MED LIST: CHONDR SU A NA/HYALUR INTRAOC KIT (SURGICARE) ONE; EPINEPHRINE INJ/PF 1 MG/1 ML AMPULE ONE; KETOROLAC TROMETHAMINE 0.45% 4 DROP/0.4 ML DROPERETTE OS PRN; LIDOCAINE 1% INJ-PF (10 MG/ML) 30 ML SDV ONE
[2019-02-19] MEDS: TETRACAINE HCL 0.5% OPH SOLN 4 ML OS PRN ×3 (10:17→10:48)
[2019-02-19] MEDS: BESIFLOXACIN HCL 0.6% OPH SUSP 5 ML BOTTLE OS PRN ×4 (10:18→11:05)
[2019-02-19] MEDS: TROPICAMIDE 1% OPH SOLN 3 ML OS PRN ×3 (10:18→10:38)
[2019-02-19] MEDS: CYCLOPENTOLATE 0.2%/PHENYLEPHRINE 1% OPH SOLN 2 ML OS PRN ×3 (10:18→10:38)
[2019-02-19] MEDS ORDERED: FENTANYL CITRATE INJ/PF 100 MCG/2 ML AMPUL ONE (10:31)
[2019-02-19] MEDS ORDERED: MIDAZOLAM 2 MG/2 ML INJ ONE (10:31)
[2019-02-19] MEDS: DORZOLAMIDE HCL 2%/TIMOLOL MALEAT 0.5% OPH SOLN 10 ML OS PRN ×2 (10:58→11:05)
[2019-02-19] MEDS: TOBRAMYCIN SULFATE/DEXAMETH OPH OINTMENT 3.5 GM ONE ×2 (10:58→11:05)
== END 2019-02-19 11:42 | disposition home or self-care (01) ==
LOC: SC 09:52
PROVIDERS: ATTEND Ophthalmology
DX: H25.12 Age-related nuclear cataract, left eye (principal); I10 Essential (primary) hypertension; E78.00 Pure hypercholesterolemia, unspecified; G40.909 Epilepsy, unspecified, not intractable, without status epilepticus; Z79.899 Other long term (current) drug therapy; Z79.82 Long term (current) use of aspirin
CPT/HCPCS: 66984; 00142; V2632; J2250; J3490 ×5; J0171; J3010; 142

== ENCOUNTER 2019-03-05 11:02 | Day surgery (SDC) | payer MEDICAID ==
[~2019-03-05 11:02] MED LIST changes: -CHONDR SU A NA/HYALUR INTRAOC KIT (SURGICARE) ONE; -EPINEPHRINE INJ/PF 1 MG/1 ML AMPULE ONE; +KETOROLAC TROMETHAMINE 0.45% 4 DROP/0.4 ML DROPERETTE OD PRN; -KETOROLAC TROMETHAMINE 0.45% 4 DROP/0.4 ML DROPERETTE OS PRN; -LIDOCAINE 1% INJ-PF (10 MG/ML) 30 ML SDV ONE
[2019-03-05] MEDS: BESIFLOXACIN HCL 0.6% OPH SUSP 5 ML BOTTLE OD PRN ×4 (11:22→12:27)
[2019-03-05] MEDS: TROPICAMIDE 1% OPH SOLN 15 ML OD PRN ×3 (11:22→11:42)
[2019-03-05] MEDS: CYCLOPENTOLATE 0.2%/PHENYLEPHRINE 1% OPH SOLN 2 ML OD PRN ×3 (11:22→11:42)
[2019-03-05] MEDS: TETRACAINE HCL 0.5% OPH SOLN 4 ML OD PRN ×3 (11:23→12:08)
[2019-03-05] MEDS ORDERED: FENTANYL CITRATE INJ/PF 100 MCG/2 ML AMPUL ONE (12:01)
[2019-03-05] MEDS ORDERED: MIDAZOLAM 2 MG/2 ML INJ ONE (12:01)
[2019-03-05] MEDS: EPINEPHRINE INJ/PF 1 MG/1 ML AMPULE ONE ×2 (12:18)
[2019-03-05] MEDS: LIDOCAINE 1% INJ-PF (10 MG/ML) 30 ML SDV ONE ×2 (12:18)
[2019-03-05] MEDS: CHONDR SU A NA/HYALUR INTRAOC KIT (SURGICARE) ONE ×2 (12:18)
[2019-03-05] MEDS: DORZOLAMIDE HCL 2%/TIMOLOL MALEAT 0.5% OPH SOLN 10 ML OD PRN ×2 (12:27)
[2019-03-05] MEDS: TOBRAMYCIN SULFATE/DEXAMETH OPH OINTMENT 3.5 GM ONE ×2 (12:27)
== END 2019-03-05 13:14 | disposition home or self-care (01) ==
LOC: SC 11:02
PROVIDERS: ATTEND Ophthalmology
DX: H25.11 Age-related nuclear cataract, right eye (principal); Z98.42 Cataract extraction status, left eye; E78.00 Pure hypercholesterolemia, unspecified; I10 Essential (primary) hypertension; Z79.82 Long term (current) use of aspirin; Z79.899 Other long term (current) drug therapy
CPT/HCPCS: 66984; 00142; V2632; J2250; J3490 ×5; J0171; J3010; 142